=== PATIENT | female | born 1985 | race Caucasian/White ===

== ENCOUNTER 2021-05-06 16:45 | Emergency (ER) | payer OTHER, SELFPAY ==
[2021-05-06 16:56] VITALS: BP 105/57; PULSE 68; RESP 18; TEMP 36.8; O2SAT 100
[2021-05-06 16:58] VITALS: BP 105/57; PULSE 68; RESP 18; TEMP 36.8; O2SAT 100
--- NOTE | 2021-05-06 17:14 | ED.GENADULT ---
HPI - General Adult General Chief complaint: Skin/Abscess/Foreign Body Stated complaint: rash Time Seen by Provider: 05/06/21 17:14 Source: patient and RN notes reviewed Mode of arrival: ambulatory Limitations: no limitations History of Present Illness HPI narrative: 36-year-old female presents with complaints of left armpit itching and a burning sensation rash for the past 1.5 weeks. ?Crystal reports constant rash without response to OTC medications. ?Antifungal medication, bacterial medication, eczema cream, and hydrocortisone cream without relief. ?History of skin problems including MRSA. ?Denies new changes in ?personal hygiene products or laundry detergent. ?No new foods or medications. ?No swelling, bleeding, or drainage. ?Denies nausea, vomiting, and abdominal pain. ?Denies fever, chills, headaches, weakness, fatigue, myalgia, facial swelling, or tongue swelling. ?Denies chest pain or dyspnea. ?Tolerating po intake well. ?LMP unknown due to Nexplanon in place. ?Remains active. ?The patient reports she was diagnosed with COVID-19 in September 2020. ?The patient reports she received 2 Moderna COVID-19 vaccines. ?The patient reports she is not waiting for the results of a COVID-19 lab test. ?The patient reports she does not have a new or worsening cough. ?The patient reports she does not have any rhinorrhea, congestion, loss of taste, sore throat, and diarrhea. ?Denies recent traveling. ?Denies concerns for COVID-19 or exposures. ?At this time, the patient is not suspected of having COVID-19. Some parts of this dictation were generated by voice recognition software and may contain typographical and/or grammatical inaccuracies. Related Data Home Medications Medication Instructions Recorded Confirmed lisinopril-hydrochlorothiazide 1 tablet PO DAILY 11/13/19 05/06/21 etonogestrel [Nexplanon] See Rx Instructions .ROUTE .COMPLEX 05/06/21 05/06/21 Allergies Allergy/AdvReac Type Severity Reaction Status Date / Time No Known Allergies Allergy Verified 05/06/21 16:58 Review of Systems Review of Systems: Narrative: CONSTITUTIONAL: Denies fever, chills, sweats. EYES: Denies visual changes, redness, discharge. ENT: Denies rhinorrhea, congestion, sore throat, otalgia. CARDIOVASCULAR: Denies chest pain, palpitations, edema. RESPIRATORY: Denies dyspnea, wheezing, cough. GASTROINTESTINAL: Denies abdominal pain, nausea, vomiting, diarrhea. SKIN: Complains of red and itching rash to LT armpit. Denies drainage. MUSCULOSKELETAL: Denies acute back pain, joint pain, or myalgia. NEUROLOGIC: Denies numbness or focal weakness. PSYCHIATRIC: Denies anxiety or depression. All other systems reviewed & are unremarkable except as noted in HPI and below. [facility] Past Medical History Medical History (Updated 05/07/21 @ 00:01 by Dary Centeno) Hypercholesteremia Hypertension MRSA (methicillin resistant staph aureus) culture positive Surgical History Surgical History (Updated 05/06/21 @ 18:10 by KEREN Robles) No significant past surgical history Family History Family History (Updated 05/06/21 @ 18:11 by KEREN Robles) Mother Hypertension Smoker Father Hypertension Social History Social History (Updated 05/06/21 @ 18:12 by KEREN Robles) Smoking status: Never smoker Tobacco type: cigarettes Second hand tobacco smoke exposure: Yes Alcohol intake: former Alcohol use details: last drink 2 years ago Substance use: never Living arrangements: with family Occupation/Education: occupation Gender identity (if verbalized by the patient): Female Sexual Orientation (if Verbalized by the Patient): Straight or Heterosexual Comments At time of signature, agree with nurse past medical, surgical, social, and family history. There is no relevant family history pertinent to the presenting complaint. Exam Narrative: Exam Narrative: GENERAL: This is a well-nourished, well-developed angelo
== END 2021-05-06 17:46 | disposition home or self-care (01) ==
PROVIDERS: Emergency Provider Nurse Practitioner Family
DX: B35.4 Tinea corporis (principal); E78.00 Pure hypercholesterolemia, unspecified; I10 Essential (primary) hypertension; Z86.14 Personal history of Methicillin resistant Staphylococcus aureus infection
CPT/HCPCS: 99213; G0463

== ENCOUNTER 2023-08-06 17:46 | Emergency (ER) | payer OTHER, SELFPAY ==
[2023-08-06 18:04] VITALS: BP 124/77; PULSE 85; RESP 18; TEMP 36.7; O2SAT 98
--- NOTE | 2023-08-06 19:02 | ED.URI ---
HPI - URI/Sore Throat General Chief Complaint: Upper Respiratory Infection Stated Complaint: sorethroat Time Seen by Provider: 08/06/23 19:02 History of Present Illness HPI Narrative: 38 year female presenting for complaint of sore throat cough for 2 days. Reports nasal drainage body aches. States the cough has caused her to vomit during a coughing fit. She is taking [id number] medication for symptoms. She endorses sick contacts. She denies shortness of breath, wheezing, nausea vomiting, fevers or chills. Related Data Home Medications Medication Instructions Recorded Confirmed lisinopril 20 1 tablet PO DAILY 11/13/19 08/06/23 mg-hydrochlorothiazide 12.5 mg tablet etonogestrel 68 mg subdermal See Rx Instructions .Route .COMPLEX 05/06/21 08/06/23 implant (Nexplanon) Allergies Allergy/AdvReac Type Severity Reaction Status Date / Time No Known Allergies Allergy Verified 05/06/21 16:58 Review of Systems Review of Systems: CONSTITUTIONAL: Denies body aches, fever, chills, or sweats. EYES: Denies visual changes, redness, or discharge. ENT: Reports sore throat rhinorrhea, congestion, denies otalgia. CARDIOVASCULAR: Denies chest pain, palpitations, or edema. RESPIRATORY: Denies dyspnea. GASTROINTESTINAL: Denies abdominal pain, nausea, vomiting, or diarrhea. SKIN: Denies rash, itching, or wounds. MUSCULOSKELETAL: Denies back pain, joint pain, or myalgia. NEUROLOGIC: Denies headache PMFSH Past Medical History Medical History Hypercholesteremia Hypertension MRSA (methicillin resistant staph aureus) culture positive Surgical History Surgical History No significant past surgical history Family History Family History Mother Hypertension Smoker Father Hypertension Social History Social History Smoking status: Never smoker Tobacco type: cigarettes Second hand tobacco smoke exposure: Yes Alcohol intake: former Alcohol use details: last drink 2 years ago Substance use: never Living arrangements: with family Occupation/Education: occupation Gender identity (if verbalized by the patient): Female Sexual Orientation (if Verbalized by the Patient): Straight or Heterosexual Exam Narrative: GENERAL: Mildly ill-appearing, no acute distress. EYES: conjunctivae clear ENT: Mucous membranes moist. TM pearly antonio with normal light reflex bilaterally; no tragal tenderness. Oropharynx erythematous Tonsils enlarged 3+ with exudate. No drooling, no hoarseness, no trismus, uvula midline. No tripod positioning, hot potato voice, or soft palate swelling. NECK: Supple. Right anterior cervical lymphadenopathy CHEST: Clear to auscultation, breath sounds equal. No respiratory distress, speaks in full sentences. HEART: Regular rate and rhythm. No murmur heard. SKIN: Warm, dry, no rash. NEURO: Alert and oriented x3. Course Course Emergency Course: Patient is aware of diagnosis, understands and agrees to treatment plan. Anticipatory guidance given. Patient agrees to follow-up as directed and is aware of reasons to seek care at the emergency department. Portions of this record may have been created with voice recognition software Level of Care: Express Care Visit Vital Signs Vital signs: Vital Signs Temperature 98.0 F 08/06/23 18:04 Pulse Rate 85 08/06/23 18:04 Respiratory Rate 18 08/06/23 18:04 Blood Pressure 124/77 08/06/23 18:04 Pulse Oximetry 98 08/06/23 18:04 Oxygen Delivery Room Air 08/06/23 18:04 Temperature 98.0 F 08/06/23 18:04 Pulse Rate 85 08/06/23 18:04 Respiratory Rate 18 08/06/23 18:04 Blood Pressure 124/77 08/06/23 18:04 Pulse Oximetry 98 08/06/23 18:04 Oxygen Delivery Room Air 08/06/23 18:
== END 2023-08-06 19:09 | disposition home or self-care (01) ==
PROVIDERS: Emergency Provider Nurse Practitioner Family
DX: J02.0 Streptococcal pharyngitis (principal); Z20.822 Contact with and (suspected) exposure to COVID-19; E78.00 Pure hypercholesterolemia, unspecified; I10 Essential (primary) hypertension; Z86.14 Personal history of Methicillin resistant Staphylococcus aureus infection
CPT/HCPCS: 87426; 87880; 99213; C9803; G0463